=== PATIENT | male | born 1945 | race Caucasian/White ===

== ENCOUNTER 2016-09-09 00:38 | Emergency (ER) | payer OTHER ==
[2016-09-09] MEDS ORDERED: LASIX IV ONE (01:02)
--- NOTE | 2016-09-09 01:07 | PROVIDER DOCUMENTATION ---
HPI-General Adult <Jose Joseph - Last Filed: 09/09/16 02:31> - General Source: patient - History of Present Illness -Gen Adult Nature of Presenting Problems: Pt is a 71 yom who presents to ER with CC of fluid retention in the foreskin of his penis and in his lower extremities bilaterally. Pt has hx of CHF and was discharged 2 days ago from the hospital for edema. Pt reports that tonight, he has noticed an increasing shortness of breath that is worsened when standing/ moving and is relieved with immobilization, N, abdominal pain from the surgery ( pt rates a 4/10), and mild wheezing. Location of Pain/Injury: reports: abdomen Pain Radiation: reports: no radiation Quality of Pain: reports: dull Severity: reports: mild Onset/Duration: reports: this evening Timing: reports: still present Context/Activities at Onset: reports: light activity Modifying Factors: improves with: immobilization, lying down, rest. worse with : exercise, movement Associated Symptoms: reports: nausea. denies: back/neck pain, chest pain, constipation, cough, diarrhea, fever/chills, loss of appetite, muscle aches, vomiting, weakness Similar Symptoms Previously?: Yes Recently seen or treated by another doctor?: Yes <Jatinder Cedillo - Last Filed: 09/09/16 02:47> - General Chief Complaint: Edema Stated Complaint: EDEMA Time Seen by Provider: 09/09/16 00:53 Allergies/Adverse Reactions: Patient Allergies Allergy/AdvReac Type Severity Reaction Status Date / Time Penicillins Allergy Severe edema Verified 09/09/16 00:57 cephalexin monohydrate * Allergy Intermediate ITCHING Verified 09/09/16 00:57 [From Keflex] Home Medications: Home Medication List Medication Instructions Recorded Confirmed Last Taken Type Aspirin [Aspirin EC] 81 mg PO EVERY OTHER DAY 05/14/13 09/09/16 09/08/16 History Gabapentin 300 mg PO BID 05/14/13 09/09/16 09/08/16 History Cyanocobalamin/FA/Pyridoxine 1 each PO DAILY 08/29/16 09/09/16 09/08/16 History [Folgard Tablet] Magnesium 250 mg PO DAILY 08/29/16 09/09/16 09/08/16 History Pantoprazole [Protonix] 40 mg PO DAILY@0700 08/29/16 09/09/16 09/08/16 History Sennosides/Docusate Sodium [Stool 1 - 3 each PO PRN PRN 08/29/16 09/09/16 History Softener Tablet] Hydrocodone/Acetaminophen [[place] 1 each PO Q4H PRN #15 tablet 09/05/16 09/09/16 09/08/16 Rx 10-325 Tablet] Furosemide [Lasix] 40 mg PO DAILY #30 tablet 09/09/16 Unknown Rx Review of Systems - Adult - REVIEW OF SYSTEMS - ADULT Constitutional: denies: chills, fever, fatique, night sweats Eyes: reports: no symptoms reported Ears, Nose, Mouth & Throat: reports: no symptoms reported Cardiovascular: reports: edema. denies: chest pain, heart murmur, irregular heart rate, palpitations, poor circulation, syncope Respiratory: reports: shortness of breath, wheezing. denies: chronic cough, cough, dyspnea on exertion, excessive sputum production, hemoptysis, pleurisy Gastrointestinal: reports: no symptoms reported Genitourinary: reports: no symptoms reported Musculoskeletal: reports: no symptoms reported Integumentary: reports: skin thickening (edema in foreskin and lower extremities ). denies: hives, hair loss, itching, mole changes, nail changes, rash, skin sores/ulcer Neurological: reports: no symptoms reported Psychiatric: reports: no symptoms reported Endocrine: reports: no symptoms reported Hematologic/Lymphatic: reports: no symptoms reported Allergic/Immunologic: reports: no symptoms reported All Other Systems: Reviewed and Negative <Jatinder Cedillo - Last Filed: 09/09/16 02:47> Past History - Adult - PAST MEDICAL HISTORY-ADULT Review of Records: reports: Nursing Assessment Review, Medications Reviewed - PRIOR SURGERIES/PROCEDURES Surgical/Procedure History: reports: recent surgery (prostatectomy) - IMMUNIZATION STATUS Childhood Immunizations: See Nurse Assessment Flu Vaccine: See Nurse Assessment <Jatinder Cedillo - Last Filed: 09/09/16 02:47> Physical Exam-General - PHYSICAL EXAM-ADULT Initial Vital Signs Reviewed: Yes - CONSTITUTIONAL General Appearance: appears well, alert, mild distress. negative: cachetic, obese, lethargic, slow to respond, obtunded, combative - RESPIRATORY Respiratory: chest non-tender, lungs clear, normal breath sounds. negative: respiratory distress, decreased breath sounds, accessory muscle use, wheezing - CARDIOVASCULAR Cardiovascular: normal peripheral pulses, regular rate, rhythm. negative: bradycardia, tachycardia, irregularly irregular - GENITOURINARY Male Genitalia: scrotal swelling. negative: inguinal lymphadenopathy - SKIN Integumentary: normal color, normal turgor, warm/dry - NEUROLOGIC Neurologic: grossly normal, no motor/sensory deficits - PSYCHIATRIC Psych/Mental Status: normal mood/affect, normal thought content, normal thought process, oriented x 3 <Jatinder Cedillo - Last Filed: 09/09/16 02:47> Progress - PLAN OF CARE/RESULTS Progress/Plan/Lab Results: POC: blood/urine/IV lasix Vital Signs - 24 hr 09/09/16 00:45 Temperature 98.0 F Pulse Rate 87 Respiratory 18 Rate Blood Pressure 96/69 O2 Sat by Pulse 96 Oximetry Orders Category Date Time Status CHEST-2 VIEWS [RAD] Stat Exams 09/09/16 01:01 Taken BNP [PRO B-NATRIURETIC PEPTIDE] Stat Lab 09/09/16 01:33 Completed CBC WITH ELECTRONIC DIFF [HEME] Stat Lab 09/09/16 01:33 Completed CMP [COMPREHENSIVE METABOLIC PANEL] [CHEM] Stat Lab 09/09/16 01:33 Completed Ddimer [D-DIMER] [CHEM] Stat Lab 09/09/16 01:33 Completed TROPONIN T Stat Lab 09/09/16 01:33 Completed Furosemide [Lasix] Med 09/09/16 01:02 Discontinued 40 mg IV NOW ONE EKG [EKG] Stat Ther 09/09/16 01:02 Ordered Laboratory Tests 09/09/16 09/09/16 09/09/16 01:33 01:33 01:33 WBC 4.71 L RBC 3.38 L Hgb 11.0 L Hct 33.1 L MCV 97.9 MCH 32.5 H MCHC 33.2 RDW Std Deviation 13.3 Plt Count 220 D MPV 10.5 H Immature Gran % (Auto) 0.0 Neut % (Auto) 61.2 Lymph % (Auto) 17.6 L [place] % (Auto) 16.8 H Eos % (Auto) 4.0 Baso % (Auto) 0.4 Immature Gran # (Auto) 0.00 Neut # (Auto) 2.88 Lymph # (Auto) 0.83 L [place] # (Auto) 0.79 H Eos # (Auto) 0.19 Baso # (Auto) 0.02 D-Dimer Sodium 138 Potassium 4.0 D Chloride 95 L Carbon Dioxide 31 Anion Gap 12 BUN 19 Creatinine 0.9 Estimated GFR/1.73 m2 > 60 BUN/Creatinine Ratio 21 Glucose 96 Calculated Osmolality 278 Calcium 9.0 Total Bilirubin 1.11 H AST 32 ALT 14 Alkaline Phosphatase 61 Troponin T Nfd-H-Opqwgluhcoz Pept 829 H Total Protein 5.8 L Albumin 3.4 L Globulin 2.4 Albumin/Globulin Ratio 1.4 09/09/16 09/09/16 01:33 01:33 WBC RBC Hgb Hct MCV MCH MCHC RDW Std Deviation Plt Count MPV Immature Gran % (Auto) Neut % (Auto) Lymph % (Auto) [place] % (Auto) Eos % (Auto) Baso % (Auto) Immature Gran # (Auto) Neut # (Auto) Lymph # (Auto) [place] # (Auto) Eos # (Auto) Baso # (Auto) D-Dimer 1.15 H Sodium Potassium Chloride Carbon Dioxide Anion Gap BUN Creatinine Estimated GFR/1.73 m2 BUN/Creatinine Ratio Glucose Calculated Osmolality Calcium Total Bilirubin AST ALT Alkaline Phosphatase Troponin T < 0.010 Zcw-K-Dtgdeedepoo Pept Total Protein Albumin Globulin Albumin/Globulin Ratio - EKG 1 Time of EKG reading by physician:: 02:10 EKG Read and Signed by:: Jose Joseph EKG Interpretation (*Must complete 3 of following elements*): Abnormal (L anterior fascicular block) Rate: 90 Rhythm: Normal sinus rhythm - XRAY 1 XRAY: Bilateral XRAY Study: Chest Impression: See EMR Report XRAY Interpretation: Emphysema, otherwise normal <Jatinder Cedillo - Last Filed: 09/09/16 02:47> Departure - Departure Time of Disposition Order: 02:32 Certified Medical Emergency: Emergent <Jose Joseph - Last Filed: 09/09/16 02:31> - Departure Time of Disposition Order: 02:34 Certified Medical Emergency: Emergent <Jatinder Cedillo - Last Filed: 09/09/16 02:47> - Departure DIAGNOSIS: Fluid overload Qualifiers: Hypervolemia type: other Qualified Code(s): E87.79 - Other fluid overload Disposition: HOME 01 Condition: Good Additional Instructions: take lasix for 5 days ED Follow Up Instructions: You have been treated by a care provider in the Emergency Department. These instructions are being provided to you so you can have an understanding of how to care for yourself upon discharge. Upon discharge from the Emergency Department, you are responsible for making arrangements for follow-up care by a physician of your choice. Take all prescribed medications as directed. Return to the Emergency Department immediately for any new or worsening symptoms. You may call the Physician Referral phone number at [phone] to obtain a list of Physicians who are taking new patients. Prescriptions: Furosemide [Lasix] 40 mg PO DAILY #30 tablet Instructions: Edema Attestation - Scribe Verification/Attestation Scribe:: Jatinder Cedillo Acting as Scribe for:: Jose Joseph Scribe documention review:: This chart was documented by a scribe and accurately reflects the service the provider performed and the decisions made by the provider. <Jatinder Cedillo - Last Filed: 09/09/16 02:47> Physician Attestation
[2016-09-09 01:42] LABS: MANUAL DIFF NEEDED? NO
[2016-09-09 01:44] LABS: BASO% 0.4 % (0.0-0.8); EOS# 0.19 X1000 (0.0-0.7); HEMATOCRIT 33.1 % (42.0-52.0); LYMPH# 0.83 X1000 (1.2-3.4); LYMPH% 17.6 % (20.5-51.1); MCH 32.5 PG (27-31); MCHC 33.2 g/dL (33-37); MCV 97.9 FL (81-99); MONO# 0.79 X1000 (0.11-0.59); MONO% 16.8 % (1.7-9.3); MPV 10.5 FL (7.4-10.4); NEUT% 61.2 % (42.2-75.2); PLT 220 X1000 (130-400); RBC 3.38 XMIL (4.7-6.1)
[2016-09-09 02:04] LABS: AGAP 12; ALBUMIN 3.4 g/dL (3.5-5.0); ALKALINE PHOSPHATASE 61 U/L (32-122); BUN 19 mg/dL (8-22); CHLORIDE 95 mmol/L (98-107); COSMO 278; GOT 32 U/L (10-34); GPT 14 U/L (10-44); SODIUM 138 mmol/L (136-145); TCO2 31 mmol/L (25-35); TOTAL BILIRUBIN 1.11 mg/dL (0.20-1.00); TOTAL PROTEIN 5.8 g/dL (6.3-8.3)
[2016-09-09 03:01] VITALS: BP 107/70
--- NOTE | 2016-09-09 09:43 | Diag Imaging Result Document ---
PROCEDURE NAME: CHEST-2 VIEWS - 09/09/2016 TWO VIEWS OF THE CHEST: FINDINGS: There is severe bullous emphysema in the upper lung zones. There are calcified nodes on the left. There is no evidence of acute pulmonary disease. There is an old rib fracture in the right lateral 5th rib. IMPRESSION: COPD. No evidence of acute disease.
--- NOTE | 2016-09-11 07:59 | EKG Report ---
Test Performed on : 09/09/2016 02:02:12 AM Test Reason : sob Blood Pressure : / mmHG Vent. Rate : 090 BPM Atrial Rate : 090 BPM P-R Int : 158 ms QRS Dur : 086 ms QT Int : 370 ms P-R-T Axes : 072 -79 086 degrees QTc Int : 452 ms Normal sinus rhythm. Left anterior fascicular block Abnormal ECG When compared with ECG of 05-SEP-2016 22:12, (Unconfirmed) No significant change was found Unconfirmed Result
== END 2016-09-09 03:01 | disposition home or self-care (01) ==
LOC: ED 00:38
DX: E87.70 Fluid overload, unspecified (principal); R60.9 Edema, unspecified; N50.89 Other specified disorders of the male genital organs; R94.31 Abnormal electrocardiogram [ECG] [EKG]; R06.02 Shortness of breath; R06.2 Wheezing; J44.9 Chronic obstructive pulmonary disease, unspecified; Z79.899 Other long term (current) drug therapy; Z79.82 Long term (current) use of aspirin
CPT/HCPCS: 71020; 80053; 83880; 84484; 85025; 85379; 93005; J1940

== ENCOUNTER 2017-02-23 16:40 | Inpatient (IN) ==
[2017-02-23] MEDS ORDERED: MORPHINE IV ONE ×3 (16:45→19:55)
--- NOTE | 2017-02-23 16:55 | Diag Imaging Result Doc PS360 ---
EXAM: CHEST-PORTABLE HISTORY: FALL TECHNIQUE: AP portable sitting upright at 1650 COMMENT: There is a large left pneumothorax. The apex of the left lung appears to be fixed to the pleura. There is COPD. Otherwise, compared to the previous study of 09/09/2016 there has been no significant change. There is soft tissue emphysema present in the axillary and upper left chest wall regions. There are apparent fractures of the lateral fourth and possibly of the fifth ribs on the left. The heart size and primary vascularity are within normal limits. IMPRESSION: Left pneumothorax and a probable rib fractures. The findings were discussed with Aj Brown MD at 02/23/2017 4:53 PM. Electronically signed by Mark Nicholas 02/23/2017 4:53 PM
[2017-02-23] MEDS ORDERED: VERSED IV ONE (17:01)
[2017-02-23] MEDS ORDERED: VERSED ONE (17:02)
[2017-02-23] MEDS ORDERED: NS 1,000 ML IV ONE (17:10)
--- NOTE | 2017-02-23 17:41 | Diag Imaging Result Doc PS360 ---
EXAM: CHEST-PORTABLE HISTORY: TUBE PLACEMENT TECHNIQUE: AP portable at 1735 COMMENT: There is a left chest tube. The pneumothorax has been evacuated. There is still soft tissue emphysema laterally. IMPRESSION: Resolution of left pneumothorax. Electronically signed by Mark Nicholas 02/23/2017 5:39 PM
[2017-02-23 18:03] LABS: MANUAL DIFF NEEDED? NO
[2017-02-23 18:09] LABS: BASO% 0.2 % (0.0-0.8); EOS% 1.6 % (0.0-10.0); HEMATOCRIT 44.4 % (42.0-52.0); HEMOGLOBIN 14.7 g/dL (14.0-18.0); LYMPH# 1.65 X1000 (1.2-3.4); LYMPH% 26.7 % (20.5-51.1); MCH 34.3 PG (27-31); MCHC 33.1 g/dL (33-37); MCV 103.5 FL (81-99); MONO# 0.76 X1000 (0.11-0.59); MONO% 12.3 % (1.7-9.3); MPV 11.3 FL (7.4-10.4); NEUT% 59.2 % (42.2-75.2); PLT 181 X1000 (130-400); RBC 4.29 XMIL (4.7-6.1)
[2017-02-23] MEDS ORDERED: MORPHINE ONE (18:19)
[2017-02-23 18:25] LABS: AGAP 14; ALKALINE PHOSPHATASE 104 U/L (32-122); BUN 23 mg/dL (8-22); CALCIUM 9.2 mg/dL (8.8-10.2); CHLORIDE 98 mmol/L (98-107); COSMO 281; GOT 41 U/L (10-34); GPT 21 U/L (10-44); POTASSIUM 4.1 mmol/L (3.5-5.1); SODIUM 138 mmol/L (136-145); TCO2 26 mmol/L (25-35); TOTAL BILIRUBIN 0.47 mg/dL (0.20-1.00); TOTAL PROTEIN 7.8 g/dL (6.3-8.3)
--- NOTE | 2017-02-23 19:15 | Diag Imaging Result Doc PS360 ---
EXAM: THORAX/ABDOMEN/PELVIS HISTORY: FELL THRU ROOF TECHNIQUE: CT of the chest with intravenous contrast; CT of the abdomen and pelvis with intravenous contrast, dose reduction (clarity.) COMMENT: There is severe COPD. There is a chest tube on the left. There is considerable soft tissue emphysema outside of the ribs on the left and there is a tiny residual pneumothorax. This is most apparent inferiorly and anteriorly over the hemidiaphragm. Some atelectasis is present in both bases particularly in the lingula anteriorly and the lower lobes medially bilaterally. The esophagus is markedly distended with retained secretions and probable food particles. This is presumably due to the gastric pull-through which was also present time the previous study of 02/02/2017. There is a fracture of the left lateral fourth rib and possibly a nondisplaced fracture of the lateral fifth rib. There is an old fracture or postsurgical change in the right fifth rib. ABDOMEN: There is a fairly large amount of stool throughout the colon. There is an accessory right renal artery. The renal and mesenteric arteries are patent and there is no evidence of abdominal aortic aneurysm. There are cysts in the liver as there were on the previous study of 04/15/2015. The kidneys adrenal glands spleen and pancreas are stable in appearance. There is a fat-containing ventral hernia on the right side of the umbilicus. Pelvis: There is diverticulosis in the sigmoid colon. No evidence of acute diverticulitis is present. There is no evidence of appendicitis. There is stool in the rectum. Some scoliosis of the lumbar spine with convexity to the left is present. There is no evidence of acute bony disease. IMPRESSION: Postsurgical changes. Residual tiny left pneumothorax with rib fracture on the left as described. Constipation. Diverticulosis coli. Electronically signed by Mark Nicholas 02/23/2017 7:13 PM
[2017-02-23] MEDS ORDERED: DILAUDID IV PRN (21:51)
[2017-02-23] MEDS ORDERED: DILAUDID IV ONE (21:51)
[2017-02-23] MEDS ORDERED: NORCO-7.5 PO PRN (21:51)
[2017-02-23] MEDS ORDERED: LOVENOX SUBQ ONE (21:51)
[2017-02-23] MEDS: TORADOL IV SCH (22:15)
--- NOTE | 2017-02-23 22:31 | HISTORY AND PHYSICAL ---
CHIEF COMPLAINT: Chest pain. HISTORY OF PRESENT ILLNESS: This is a 71-year-old male who fell through his attic floor today and landed on his left side. Since then he has been complaining of left-sided chest wall pain and shortness of breath that is worse with deep breaths, coughing and movement. It is helped a little with morphine in the ER. No nausea, vomiting, headache, neck pain, abdominal pain, other extremity pain, or other systemic complaints. Imaging in the ER revealed a rib fracture on the left and pneumothorax. A chest tube was placed in the emergency room. A subsequent CT scan revealed residual small left pneumothorax with fractures of the left 4th rib and possibly left 5th rib. Subsequent chest x-ray then revealed resolution of the pneumothorax. PAST MEDICAL HISTORY: 1. History of esophageal cancer status post esophagectomy with gastric pull-through in 2009. 2. History of bladder cancer status post robotic prostatectomy [place] [address] Gruber. 3. Gastroesophageal reflux disease. 4. Chronic pain of the chest wall and back after esophagectomy. ALLERGIES: Penicillin and Keflex. HOME MEDICATIONS: Aspirin, Neurontin, magnesium, Protonix, [place]. FAMILY HISTORY: Mother had diabetes mellitus. SOCIAL HISTORY: He is retired. He is a former smoker but currently denies tobacco, alcohol or illicit drug use. He is . PAST SURGICAL HISTORY: 1. Manuel Graeme esophagectomy. 2. Internal hernia repair. 3. Robotic prostatectomy. PHYSICAL EXAMINATION: VITAL SIGNS: Temperature 97.5 degrees, pulse 83, respirations 15, blood pressure 116/70, O2 saturation 100%. GENERAL: Elderly male, in no acute distress who looks stated age. HEENT: Normocephalic, atraumatic. Extraocular muscles intact. Pupils equal, round, reactive to light. Sclerae anicteric. Moist mucous membranes. Hearing grossly normal. NECK: Supple. No thyromegaly. CARDIOVASCULAR: Regular rate and rhythm. RESPIRATORY: Bilateral equal breath sounds. No work of breathing. Chest tube is in place on the left without an air leak. He is tender over the left anterior and lateral chest wall. GASTROINTESTINAL: Soft, nontender, nondistended. A well-healed laparotomy incision. No hernia. No mass appreciated. EXTREMITIES: No clubbing, cyanosis, edema. SKIN: Warm and dry. No rash. MUSCULOSKELETAL: Moves all extremities equally and well. LABORATORY: White cell count 6, hemoglobin 14, platelet count 181,000. Electrolyte panel was reviewed and unremarkable. IMAGING: As described above in HPI. ASSESSMENT/PLAN: A 71-year-old male with a left-sided rib fracture and pneumothorax after a fall. The pneumothorax has improved or resolved after chest tube drainage. He will be admitted for continued observation and insurance of resolution of the pneumothorax as well as pain control and stabilization of his breathing. I will follow his chest examination and x-rays to determine when to remove the chest tube. cc: Nilson Hurt MD
[2017-02-24] MEDS: TORADOL IV SCH ×4 (05:12→21:18)
[2017-02-24] MEDS: NORCO-10 PO PRN ×3 (05:17→17:54)
[2017-02-24] MEDS: PRILOSEC PO SCH (06:44)
[2017-02-24 07:03] LABS: MANUAL DIFF NEEDED? NO
[2017-02-24 07:14] LABS: BASO% 0.1 % (0.0-0.8); HEMATOCRIT 38.9 % (42.0-52.0); HEMOGLOBIN 12.9 g/dL (14.0-18.0); IMM GRAN# 0.02 X1000 (0.0-0.04); IMM GRAN% 0.2 % (0.0-0.5); LYMPH# 0.56 X1000 (1.2-3.4); LYMPH% 6.7 % (20.5-51.1); MCH 33.9 PG (27-31); MCHC 33.2 g/dL (33-37); MCV 102.1 FL (81-99); MONO# 0.75 X1000 (0.11-0.59); MPV 11.1 FL (7.4-10.4); PLT 147 X1000 (130-400); RBC 3.81 XMIL (4.7-6.1)
--- NOTE | 2017-02-24 07:14 | Diag Imaging Result Doc PS360 ---
EXAM: CHEST-PORTABLE HISTORY: pneumothorax TECHNIQUE: AP portable at 0500 COMMENT: There is a left chest tube. There continues to be soft tissue emphysema over the left upper chest laterally. The inspiration is better than on 02/23/2017. There is no evidence of residual pneumothorax. Otherwise the appearance of the chest has not changed significantly. IMPRESSION: Stable chest. Electronically signed by Mark Nicholas 02/24/2017 7:12 AM
[2017-02-24 08:06] LABS: AGAP 11; BUN 26 mg/dL (8-22); CALCIUM 8.8 mg/dL (8.8-10.2); CHLORIDE 98 mmol/L (98-107); COSMO 275; POTASSIUM 4.1 mmol/L (3.5-5.1); SODIUM 135 mmol/L (136-145); TCO2 26 mmol/L (25-35)
[2017-02-24] MEDS: NEURONTIN PO SCH ×2 (08:29→21:18)
[2017-02-24] MEDS: MAG-OX PO SCH (08:29)
--- NOTE | 2017-02-24 10:18 | PROGRESS NOTE ---
DATE: 02/24/2017 SUBJECTIVE: The patient says his chest pain has improved some. He is not short of breath this morning. OBJECTIVE: He is afebrile and vital signs are stable. General: He is alert and oriented x3. No acute distress. CV: Regular rate and rhythm. Respiratory: Bilateral equal breath sounds. No work of breathing. There is no air leak in the chest tube. IMAGING: Chest x-ray shows resolution of the pneumothorax. LABORATORY: White blood cell count 8, hemoglobin 12.9. BUN 26, creatinine 0.9. ASSESSMENT AND PLAN: A 71-year-old male status post fall with left-sided rib fractures and pneumothorax. The pneumothorax has resolved after chest tube drainage. We will continue the chest tube 1 more day and change it to water seal. If he is stable tomorrow, I will plan to remove the chest tube and potentially discharge tomorrow if his pain is controlled and he is breathing adequately. cc: Nilson Hurt MD
--- NOTE | 2017-02-24 11:29 | Diag Imaging Result Doc PS360 ---
EXAM: CHEST-PORTABLE HISTORY: recent pneumothorax TECHNIQUE: AP portable upright chest COMMENT: The left chest tube is again noted. Compared to the previous study at 0500 there is been no appreciable change. IMPRESSION: Stable chest. Electronically signed by Mark Nicholas 02/24/2017 11:26 AM
[2017-02-25] MEDS: TORADOL IV SCH ×3 (04:07→16:55)
[2017-02-25] MEDS ORDERED: ZOFRAN IV ONE (05:48)
[2017-02-25] MEDS: PRILOSEC PO SCH (05:59)
[2017-02-25] MEDS: ASPIRIN EC PO SCH (08:44)
[2017-02-25] MEDS: MAG-OX PO SCH (08:44)
[2017-02-25] MEDS: NEURONTIN PO SCH ×2 (08:44→20:45)
[2017-02-25] MEDS: NORCO-10 PO PRN ×3 (08:49→18:30)
--- NOTE | 2017-02-25 12:18 | PROGRESS NOTE ---
DATE: 02/25/2017 SUBJECTIVE: The patient has some intermittent shortness of breath. He is not hurting as bad in his chest. OBJECTIVE: Vital signs: He is afebrile. Vital signs are stable. However, his O2 saturation on room air is 89%. We placed him back on 2 L. Chest tube output is negligible. There is no air leak in the chest tube. General: Alert and oriented x3. No acute distress. CV: Regular rate and rhythm. Respiratory: He has bilateral breath sounds. They appear to be equal. IMAGING: None today. Yesterday showed resolution of the pneumothorax. ASSESSMENT AND PLAN: This is a 71-year-old male with pneumothorax after a fall and left-sided rib fractures. A chest tube was placed. There is apparent resolution of the pneumothorax. Will remove the chest tube today and follow up imaging later this afternoon. Will try to wean him off the oxygen today in anticipation of discharge tomorrow. cc: Nilson Hurt MD
--- NOTE | 2017-02-25 15:55 | Diag Imaging Result Doc PS360 ---
EXAM: CHEST-2 VIEWS HISTORY: recent pneumothorax TECHNIQUE: PA and lateral chest COMMENT: The left chest tube has been removed. There is still soft tissue emphysema but no detectable pneumothorax is demonstrated. There is some atelectasis present in the left base. The heart size and pulmonary vascularity are within normal limits. There may be a small left pleural effusion. IMPRESSION: No evidence of residual or recurrent pneumothorax. Electronically signed by Mark Nicholas 02/25/2017 3:52 PM
[2017-02-25] MEDS ORDERED: ZOFRAN IV PRN (20:25)
[2017-02-26] MEDS: TORADOL IV SCH ×5 (01:42→23:02)
--- NOTE | 2017-02-26 05:53 | EKG Report ---
Test Performed on : 02/23/2017 4:43:03 PM Test Reason : FELL THRU ROOF Blood Pressure : / mmHG Vent. Rate : 097 BPM Atrial Rate : 097 BPM P-R Int : 182 ms QRS Dur : 080 ms QT Int : 330 ms P-R-T Axes : 073 242 081 degrees QTc Int : 419 ms Normal sinus rhythm. Lateral infarct , age undetermined Abnormal ECG When compared with ECG of 09-SEP-2016 02:02, Left anterior fascicular block is no longer present Lateral infarct is now present Unconfirmed Result
[2017-02-26] MEDS: PRILOSEC PO SCH (06:01)
[2017-02-26] MEDS: NORCO-10 PO PRN ×3 (06:51→19:29)
[2017-02-26] MEDS: NEURONTIN PO SCH ×2 (09:42→20:48)
[2017-02-26] MEDS: MAG-OX PO SCH (09:42)
--- NOTE | 2017-02-26 10:00 | PROGRESS NOTE ---
DATE: 02/26/2017 SUBJECTIVE: The patient says he has had no problems overnight. No chest pain or shortness of breath. He sat up in a chair for a little while. OBJECTIVE: Vital Signs: He is afebrile. Vital signs are stable except for a drop in his saturations 86% on room air on 2 L of nasal cannula. His oxygen saturation is 94%. General: He is awake and alert. No acute distress. CV: Regular rate and rhythm. Respiratory: Bilateral equal breath sounds. No work of breathing. ASSESSMENT AND PLAN: A 71-year-old male, status post left pneumothorax with associated left rib fracture after a fall. The pneumothorax has resolved. His respiratory insufficiency is mild, but persists. Hopefully, we can wean him off oxygen today and then discharge him. cc: Nilson Hurt MD
[2017-02-26] MEDS ORDERED: VENTOLIN HFA INH PRN (10:03)
--- NOTE | 2017-02-26 16:52 | CONSULTATION ---
DATE OF CONSULTATION: 02/26/2017 REFERRING PHYSICIAN: Dr. Hurt CHIEF COMPLAINT: Fall. HISTORY OF PRESENT ILLNESS: This is a 71-year-old male, with past medical history of COPD, esophageal cancer, bladder cancer and GERD, who presented to the emergency room after a fall. He states he was working in the attic, fell through the ceiling, and landed on his left side on concrete. He did have a left pneumothorax and rib fractures. He did have a chest tube placed with resolution of the pneumothorax. He is currently requiring oxygen to maintain appropriate oxygen saturations. He denies any pain or discomfort at this time. He denies any fever, chills, cough, abdominal pain, nausea, vomiting, or diarrhea. REVIEW OF SYSTEMS: A 10-point review of systems was conducted. Pertinent is noted in the HPI, otherwise noncontributory. PAST MEDICAL HISTORY: As mentioned in HPI, otherwise noncontributory. PAST SURGICAL HISTORY: Hernia repair, esophagus surgery and prostatectomy. ALLERGIES: Penicillin and Keflex. FAMILY HISTORY: Noncontributory. SOCIAL HISTORY: The patient lives at home with his . Denies use of tobacco , alcohol, or illicit drugs. HOME MEDICATIONS: Aspirin, Neurontin, magnesium, Protonix, [place]. PHYSICAL EXAMINATION: Vital Signs: Blood pressure 105/64, heart rate 89, respiratory rate 18, temperature 98.4, oxygen saturation 95% on 2 L. General: Awake, alert, sitting up in bed. No acute distress noted. HEENT: Normocephalic and atraumatic. PERRL. Cardiovascular: Regular rate and rhythm. S1 and S2 present. Chest: Reduced entry. Abdomen: Soft, bowel sounds present in all quadrants. Extremities: No edema noted. Skin: Warm, dry and intact. Neurologic: Alert and oriented x3. No focal deficits. LABORATORIES AND INVESTIGATIONS: Chest x-ray, performed 02/25/2017, shows resolution of pneumothorax. ASSESSMENT AND PLAN: This is a 71-year-old male, with past medical history as mentioned in HPI, who was admitted to the hospital after suffering a fall and had a pneumothorax with rib fractures. COPD and emphysema on CT chest. Started bronchodilators. He did have a chest tube placed, but since has been removed. Imaging shows resolution of pneumothorax. The patient is requiring some supplemental oxygen to maintain appropriate oxygen saturations, and which he may require at home. Continue home medications. Further recommendations pending diagnostic studies. Thank for the courtesy of this consult. Dictated by TOBI Dee for Sherrill Barker MD cc: TOBI Dee MD Jason R. Seale, MD [facility]
[2017-02-26] MEDS: ADVAIR 250/50 DISKUS INH SCH (19:30)
[2017-02-27 03:16] LABS: ALLEN TEST YES; BE 4.4 mmoll (-3.0-3.0); BLOOD TYPE ARTERIAL; DRAW SITE R BRACHIAL; MODALITY CANNULA; O2(CT) 15.8 mL/dL (15.0-23.0); PCO2(98.6) 50 mmHg (35-45); PO2(98.6) 69 mmHg (60-100); SAMPLE BLOOD; SAO2 96.1 % (95.0-100.0); pH(98.6) 7.39 (7.35-7.45)
[2017-02-27] MEDS: PRILOSEC PO SCH ×2 (05:41→06:18)
[2017-02-27] MEDS: NORCO-10 PO PRN ×2 (05:43→14:04)
[2017-02-27 06:44] LABS: MANUAL DIFF NEEDED? NO
[2017-02-27 06:56] LABS: BASO% 0.2 % (0.0-0.8); EOS# 0.24 X1000 (0.0-0.7); EOS% 4.5 % (0.0-10.0); HEMATOCRIT 37.3 % (42.0-52.0); HEMOGLOBIN 12.2 g/dL (14.0-18.0); LYMPH# 0.53 X1000 (1.2-3.4); LYMPH% 9.9 % (20.5-51.1); MCH 33.5 PG (27-31); MCHC 32.7 g/dL (33-37); MCV 102.5 FL (81-99); MONO# 0.73 X1000 (0.11-0.59); MONO% 13.7 % (1.7-9.3); MPV 11.2 FL (7.4-10.4); NEUT% 71.7 % (42.2-75.2); PLT 147 X1000 (130-400); RBC 3.64 XMIL (4.7-6.1)
[2017-02-27 07:08] LABS: AGAP 7; BUN 35 mg/dL (8-22); CALCIUM 8.8 mg/dL (8.8-10.2); CHLORIDE 98 mmol/L (98-107); COSMO 280; POTASSIUM 4.8 mmol/L (3.5-5.1); SODIUM 136 mmol/L (136-145); TCO2 31 mmol/L (25-35)
--- NOTE | 2017-02-27 07:34 | Diag Imaging Result Doc PS360 ---
CHEST-1 VIEW - 02/27/2017 INDICATION: SOB TECHNIQUE: COMPARISON: 02/25/2017 FINDINGS: Stable COPD changes. Stable minimal scarring in the left lung base. There is improvement in the subcutaneous emphysema along the left chest wall. No pneumothorax or large effusion. IMPRESSION: Improving subcutaneous emphysema at the left chest wall. No new abnormality. Electronically signed by Kennedy Batista 02/27/2017 7:32 AM
[2017-02-27] MEDS: ADVAIR 250/50 DISKUS INH SCH (07:37)
[2017-02-27] MEDS: ASPIRIN EC PO SCH (08:29)
[2017-02-27] MEDS: MAG-OX PO SCH (08:29)
[2017-02-27] MEDS: NEURONTIN PO SCH (08:29)
[2017-02-27 15:52] VITALS: BP 101/71
--- NOTE | 2017-02-27 16:36 | PROGRESS NOTE ---
DATE: 02/27/2017 SUBJECTIVE: The patient reports some off and on left-sided chest pain. He occasionally gets short of breath. His oxygen saturation level as reported per the nurse initially was 91-94% on room air. However, he then desaturated to 85% on room air. OBJECTIVE: Vital Signs: He is afebrile. His vital signs were stable with oxygen saturations as noted above, being somewhat labile. General: He is awake, alert and oriented x4. No acute distress. Respiratory: Bilateral equal breath sounds. No increased work of breathing. Gastrointestinal: Soft, nontender, nondistended. CV: Regular rate and rhythm. LABORATORY: White blood cell count 5.3, hemoglobin 12.2. His ABG this morning showed pH 7.4, pCO2 of 50, PaO2 of 69, bicarb 28. BUN 35, creatinine 1.0. IMAGING: Chest x-ray today showed improving subcutaneous emphysema in the chest wall and no pneumothorax or large effusion. There are stable COPD changes. ASSESSMENT AND PLAN: A 71-year-old male with left-sided rib fractures and pneumothorax after a fall. The pneumothorax has resolved. He continues to have some chest pain and hypoxia. He has COPD. Dr. Barker is assisting with treating his respiratory insufficiency. We will plan to discharge him per Dr. Barker's recommendations in the near future, either with or without oxygen. cc: Nilson Hurt MD
--- NOTE | 2017-02-27 19:18 | DISCHARGE SUMMARY ---
ADMISSION DATE: 02/23/2017 DISCHARGE DATE: 02/27/2017 ADMITTING DIAGNOSES: 1. Left fourth rib fracture. 2. Left pneumothorax. 3. History of chronic chest pain. 4. History of chronic back pain. 5. Gastroesophageal reflux disease. 6. History of bladder and esophageal cancer. DISCHARGE DIAGNOSES: 1. Left fourth rib fracture. 2. Left pneumothorax. 3. History of chronic chest pain. 4. History of chronic back pain. 5. Gastroesophageal reflux disease. 6. History of bladder and esophageal cancer. 7. Respiratory insufficiency. 8. Hypoxia. PROCEDURES: Placement of left-sided chest tube in the emergency department. CONSULTS: Dr. Barker, with pulmonology. HOSPITAL COURSE: This is a 71-year-old man who fell through his attic ceiling sustaining left- sided rib fracture and pneumothorax. He was admitted for pain control, oxygen supplementation and observation. He had a chest tube placed in emergency department which resolved his pneumothorax. We removed the chest tube on 02/25/2017. He had no recurrent pneumothorax. He did have some pain and shortness of breath that gradually resolved during his admission. Dr. Barker saw the patient and started AA nebulizers. By 02/27/2017 he was maintaining his oxygen level without supplemental oxygen in the low 90s. His pain had improved and he was discharged home. INSTRUCTIONS: Follow up with Dr. Barker in 1 week and with primary care physician. Followup with Dr. Hurt as needed. He may remove the dressing on his left chest next week. He may shower. He may eat a regular diet as tolerated. DISCHARGE MEDICATIONS: He will continue aspirin, gabapentin, magnesium, Protonix and [place] at home. He has a new prescription for albuterol and Advair nebulizers. cc: MD Sherrill Travis MD
--- NOTE | 2017-02-28 03:44 | PROGRESS NOTE ---
DATE: 02/27/2017 ADDENDUM: I spoke with the nurse again around 4:30 this afternoon and in fact his oxygen level is good in the mid 90s on room air. He briefly decreased his oxygen level into the mid 80s although he seemed to be somewhat anxious. As his nerves calmed down his oxygen level improved. I think he can be safely discharged with encouragement to slow his breathing rate down and continue practicing on the incentive spirometer. He knows to call our office or Dr. Barker's if any persistent shortness of breath and chest pain. cc: Nilson Hurt MD
--- NOTE | 2017-03-02 07:13 | ED EKG INTERP ---
This chart was entered by Zahida Soto Scribe, acting as scribe for Aj Brown MD. EKG Interpretation - EKG Time of EKG reading by physician:: 16:43 EKG Read and Signed by:: Aj Brown EKG Interpretation (*Must complete 3 of following elements*): Abnormal Rate: 97 Rhythm: NSR [place]: normal QRS: other (LATERAL INFARCT) [place] Interval: normal ST Wave: normal Attestation - Physician/ CLAUS Attestation Patient care was provided by Advanced Practice Provider:: No The physician spent face to face time with patient:: Yes (APPs do not interpret EKGs) Advanced Practice Provider documentation review:: Supervising physician onsite and consulted in the evaluation and care of this patient. The physician did have a face to face encounter with the patient. This chart was documented by the indicated scribe, (Zahida Soto Scribe) and accurately reflects the services I performed and decisions made by Kevin swanson Alex T., MD, as attested by the provider's signature.
--- NOTE | 2017-03-02 07:16 | PROVIDER DOCUMENTATION ---
This chart was entered by Zahida Soto Scribe, acting as scribe for Aj Brown MD. [id number] <Igor Wallace. - Last Filed: 02/23/17 20:22> - General Source: patient, EMS Unable to obtain history due to:: urgency (Pt is sob in resp distress) - History of Present Illness -Trauma Location of Pain/Injury: reports: chest (chest wall- left), pelvis (L hip pain) Head Injury Location: reports: other (denies) Pain Radiation: reports: no radiation Quality of Pain: reports: aching Severity: reports: mild Onset/Duration: reports: just prior to arrival Timing: reports: still present Method of Injury: reports: fall (10 ft) Loss of Consciousness: no loss of consciousness Duration of LOC: 0 Remembers:: reports: injury, coming to hospital Modifying Factors: improves with: nothing Injury Associated Symptoms: reports: chest pain (L sided chest wall pain), shortness of breath, other (L hip pain). denies: back/neck pain, dizziness, headaches, nausea, snap/crack/pop sensation, pain with inspiration, vomiting, weakness, trouble walking Similar Symptoms Previously?: No Recently seen or treated by another doctor?: No <Aj Brown - Last Filed: 03/02/17 07:16> - General Chief Complaint: Fall Stated Complaint: FALL, 10FT., RESPIRATORY DISTRESS Time Seen by Provider: 02/23/17 16:44 Allergies/Adverse Reactions: Patient Allergies Allergy/AdvReac Type Severity Reaction Status Date / Time Penicillins Allergy Severe edema Verified 02/23/17 17:01 cephalexin monohydrate * Allergy Intermediate ITCHING Verified 02/23/17 17:01 [From Keflex] Home Medications: Home Medication List Medication Instructions Recorded Confirmed Last Taken Type Aspirin [Aspirin EC] 81 mg PO EVERY OTHER DAY 05/14/13 02/23/17 02/23/17 07:00 History Gabapentin 300 mg PO BID 05/14/13 02/23/17 02/23/17 07:00 History Magnesium 250 mg PO DAILY 08/29/16 02/23/17 02/23/17 12:00 History Pantoprazole [Protonix] 40 mg PO DAILY@0700 08/29/16 02/23/17 02/23/17 07:00 History Albuterol [Albuterol Neb] 2.5 mg INH Q4H PRN PRN #30 neb 02/27/17 Unknown Rx Fluticasone/Salmet 250/50 INH 1 puff INH RTBID #60 inhaler 02/27/17 Unknown Rx [Advair 250/50 Diskus] Hydrocodone/Acetaminophen [Lorcet 1 each PO Q4H PRN #30 tablet 02/27/17 Unknown Rx Plus 7.5-325 mg Tablet] - History of Present Illness -Trauma Nature of Presenting Problem: 71 y/o M presents to ED per EMS. Pt fell thru ceiling approx 10 ft. Pt states he fell on his left side and having left sided chest wall pain and L hip pain. Pt denies any LOC. Pt states he did not hit head and does not have headache. Pt is alert and oriented. Pt rates his pain a 8/10. (Zahida Soto) 71 y/o M presents to ED per EMS. Pt fell thru ceiling approx 10 ft. Pt states he fell on his left side and having left sided chest wall pain and L hip pain. Pt denies any LOC. Pt states he did not hit head and does not have headache. Pt is alert and oriented. Pt rates his pain a 8/10. (Aj Brwon) Review of Systems - Adult - REVIEW OF SYSTEMS - ADULT ROS:: limited per condition (pt is SOB) Constitutional: denies: chills, fever Cardiovascular: reports: chest pain (chest wall pain to L side). denies: palpitations Respiratory: reports: shortness of breath. denies: cough Musculoskeletal: reports: other (L hip tenderness). denies: back pain <Aj Brown - Last Filed: 03/02/17 07:16> Past History - Adult - PAST MEDICAL HISTORY-ADULT Review of Records: reports: Old Records Reviewed, Nursing Assessment Review Respiratory: reports: COPD Endocrine/Immune: reports: cancer (prostate and esophgual ca) - PRIOR SURGERIES/PROCEDURES Surgical/Procedure History: reports: recent surgery (prostatectomy) - IMMUNIZATION STATUS Childhood Immunizations: See Nurse Assessment Flu Vaccine: See Nurse Assessment - SOCIAL HISTORY Smoking: denies, non-smoker Substance Use: none/never, denies <Aj Brown - Last Filed: 03/02/17 07:16> Physical Exam-Injury Related - Physical Exam-Injury Related Initial Vital Signs Reviewed: Yes General Appearance: alert, mild distress, thin Eyes: pink conjunctivae Head, Ears, Nose, Mouth & Throat: normocephalic/atraumatic, moist mucous membranes, normal ENT inspection Neck: non-tender, full range of motion, supple, normal inspection. negative: C- spine tenderness, decresed ROM, ecchymosis Respiratory: decreased breath sounds (left side), pain on inspiration, increased rate, tenderness (L chest wall pain) Cardiovascular: normal peripheral pulses, no edema, no gallop, no JVD, no murmur , tachycardia Abdominal Exam: normal bowel sounds, non tender, soft, no organomegaly, no pulsatile mass. negative: abdominal bruit, distended, guarding, rigid, rebound , tenderness, mass, hepatomegaly, spleenomegaly Back Exam: normal inspection, no CVA tenderness, no vertebral tenderness. negative: CVA tenderness, decreased range of motion, ecchymosis, kyphosis, muscle spasm, scoliosis, swelling, vertebral tenderness Extremity: normal range of motion, no pedal edema, tenderness (to L hip) Integumentary: normal color, warm/dry Neurologic: senior gis analyst II-XII nml as tested, grossly normal, no motor/sensory deficits Psych/Mental Status: oriented x 3 - Glascow Coma Score Best Eye Response ([place]): (4) open spontaneously Best Verbal Response ([place]): (5) oriented Best Motor Response (Ani): (6) obeys commands Ani Total: 15 <Aj Brown - Last Filed: 03/02/17 07:16> Progress - PLAN OF CARE/RESULTS Result Diagrams: 02/23/17 14:52 02/23/17 14:52 <Igor Wallace - Last Filed: 02/23/17 20:22> - PLAN OF CARE/RESULTS Result Diagrams: 02/27/17 06:21 02/27/17 06:21 - REASSESSMENT Reassessment #1 Time Reassessed: 18:03 Status: improving (Pt is stable / family is at bedside) - XRAY 1 XRAY: Bilateral XRAY Study: Chest Impression: Abnormal (left pneumothorax and probable rib fractures- Dr. Flores (radiologist)), Discussed w/Radiology, See EMR Report 2 XRAY: Bilateral XRAY Study: Chest Impression: Abnormal (resoultion of left pneuothroax) XRAY Interpretation: repeat(chest tube) - Dr. flores (radiologist) - CONSULTS/PCP/HOSPITALIST Notification #1 *Consult/PCP/Hospitalist*: ( Radiologist) Time Discussed: 16:52 Consult Disposition: other (results of xray) - CHANGE OF SHIFT REPORT (ED Provider) Report Given and Care Transferred to:: Time of Transfer: 18:00 Items Pending: Labs, CT/MRI Results, Pain Control, Physician Consult/Arrival <Aj Brown - Last Filed: 03/02/17 07:16> - PLAN OF CARE/RESULTS Progress/Plan/Lab Results: Orders Category Date Time Status Admit - [facility] Routine AdmDCTranf 02/23/17 21:51 Ordered Activity - Bed Rest with BRP ORDERED Care 02/23/17 21:51 Active Apply Mechanical Device [QM] ORDERED Care 02/23/17 21:51 Active Drain Care PRN Care 02/23/17 21:51 Completed Vital Signs Order Q 4-HR ASSESS Care 02/23/17 21:51 Completed Z-Document. for Tele Applied ORDERED Care 02/23/17 21:51 Completed Regular Diet Diet 02/23/17 21:52 Completed CHEST-PORTABLE [RAD] Routine Exams 02/24/17 06:00 Completed CHEST-PORTABLE [RAD] Stat Exams 02/23/17 16:41 Completed CHEST-PORTABLE [RAD] Stat Exams 02/23/17 17:[address] THORAX/ABDOMEN/PELVIS [CT] Stat Exams 02/23/17 16:45 Completed BMP [BASIC METABOLIC PANEL] [CHEM] Stat Lab 02/24/17 07:13 Completed CBC WITH DIFF [HEME] Stat Lab 02/23/17 14:52 Completed CBC WITH ELECTRONIC DIFF [HEME] Routine Lab 02/24/17 06:00 Completed COMPREHENSIVE METABOLIC PANEL [CHEM] Stat Lab 02/23/17 14:52 Completed 0.9% Sodium Chloride Inj [Ns] 1,000 ml Med 02/23/17 17:10 Discontinued IV 999 mls/hr Aspirin EC Med 02/25/17 09:00 Discontinued 81 mg PO EVERY OTHER DAY Enoxaparin [Lovenox] Med 02/23/17 21:51 Discontinued 40 mg SUBQ NOW ONE Gabapentin [Neurontin] Med 02/24/17 09:00 Discontinued 300 mg PO BID Hydrocodone/APAP 10 mg/325 mg [[place]-10] Med 02/23/17 21:55 Discontinued 1 each PO Q4H PRN PRN Hydrocodone/APAP 7.5 mg/325 mg [[place]-7.5] Med 02/23/17 21:51 Discontinued 1 each PO Q4H PRN PRN Hydromorphone [Dilaudid] Med 02/23/17 21:51 Discontinued 1 mg IV NOW ONE Hydromorphone [Dilaudid] Med 02/23/17 21:51 Discontinued 1 mg IV Q3H PRN PRN Ketorolac [Toradol] Med 02/23/17 22:00 Discontinued 15 mg IV Q6H Magnesium Oxide [Mag-Ox] Med 02/24/17 09:00 Discontinued 400 mg PO DAILY Midazolam [Versed] Med 02/23/17 17:01 Discontinued 4 mg IV NOW ONE Midazolam [Versed] Med 02/23/17 17:02 Discontinued 5 mg .ROUTE .STK-MED ONE Morphine Med 02/23/17 18:19 Discontinued 2 mg .ROUTE .STK-MED ONE Morphine Med 02/23/17 16:45 Discontinued 2 mg IV NOW ONE Morphine Med 02/23/17 18:18 Discontinued 4 mg IV NOW ONE Morphine Med 02/23/17 19:55 Discontinued 4 mg IV NOW ONE Omeprazole [Prilosec] Med 02/24/17 07:00 Discontinued 20 mg PO DAILY@0700 Oxygen Device Routine Oth 02/23/17 21:51 Completed Telemetry [OM.EQ] Routine Oth 02/23/17 21:51 Active EKG [EKG] Stat Ther 02/23/17 16:45 Draft 1655: PT AND FAMILY AWARE OF THE CHEST XRAY RESULTS 1700: PT AND FAMILY ARE AWARE AND CONSENT TO CHEST TUBE PROCEDURE. (Zahida Soto) 1655: PT AND FAMILY AWARE OF THE CHEST XRAY RESULTS 1700: PT AND FAMILY ARE AWARE AND CONSENT TO CHEST TUBE PROCEDURE. (Aj Brown) Procedures - CHEST TUBE Left Upper Lateral Chest Time-Out Verification Completed?: Yes Size of Turkish Tube (cm): 24 Anesthetic: 0.5% Volume of Anesthesia (ml's): 10 Rajput of Air Mcdonough: Yes Number of Attempts: 1 Connected to Wall Suction?: Yes Tube Sutured to Skin: Yes Placement Verified by XRAY?: Yes <Aj Brown - Last Filed: 03/02/17 07:16> Departure - Departure Date of Disposition Decision: 02/23/17 Time of Disposition Decision: 19:30 Certified Medical Emergency: Emergent <Igor Wallace - Last Filed: 02/23/17 20:22> - Departure Date of Disposition Decision: 02/23/17 Time of Disposition Decision: 19:31 Certified Medical Emergency: Emergent - Critical Care Note This patient required my direct & personal management of CC.: Yes Total Time (mins): 40 Critical Care Statement: This patient required my direct personal management to treat or rule out processes, the absence of which, could potentiallly result in sudden, clinically significant life or limb threatening deterioration. <Aj Brown - Last Filed: 03/02/17 07:16> - Departure DIAGNOSIS: Pneumothorax Disposition: ADMITTED INPATIENT 09 Condition: Good Attestation - Physician/ CLAUS Attestation Patient care was provided by Advanced Practice Provider:: No The physician spent face to face time with patient:: Yes (It was only MD, no CLAUS involvement) Advanced Practice Provider documentation review:: Supervising physician onsite and consulted in the evaluation and care of this patient. The physician did have a face to face encounter with the patient. <Aj Brown - Last Filed: 03/02/17 07:16> This chart was documented by the indicated scribe, (Zahida Soto Scribe) and accurately reflects the services I performed and decisions made by me, Aj Brown MD, as attested by the provider's signature.
== END 2017-02-27 17:25 | disposition home or self-care (01) ==
LOC: ED 16:40 → 4N 23:37
PROVIDERS: ADMIT Surgery; ATTEND Surgery

== ENCOUNTER 2018-09-27 03:12 | Inpatient (IN) ==
--- NOTE | 2018-09-27 04:32 | PROVIDER DOCUMENTATION ---
HPI-Respiratory General - General Chief Complaint: Cough Stated Complaint: COL LUNG/POS BROKEN RIB/SOB Time Seen by Provider: 09/27/18 03:41 Source: patient Allergies/Adverse Reactions: Patient Allergies Allergy/AdvReac Type Severity Reaction Status Date / Time Penicillins Allergy Severe edema Verified 09/27/18 04:40 cephalexin monohydrate * Allergy Intermediate ITCHING Verified 09/27/18 04:40 [From Keflex] Home Medications: Home Medication List Medication Instructions Recorded Confirmed Last Taken Type Aspirin [Aspirin EC] 81 mg PO EVERY OTHER DAY 05/14/13 02/23/17 02/23/17 07:00 History Gabapentin 300 mg PO BID 05/14/13 02/23/17 02/23/17 07:00 History Magnesium 250 mg PO DAILY 08/29/16 02/23/17 02/23/17 12:00 History Pantoprazole [Protonix] 40 mg PO DAILY@0700 08/29/16 02/23/17 02/23/17 07:00 History Albuterol [Albuterol Neb] 2.5 mg INH Q4H PRN PRN #30 neb 02/27/17 Unknown Rx Fluticasone/Salmet 250/50 INH 1 puff INH RTBID #60 inhaler 02/27/17 Unknown Rx [Advair 250/50 Diskus] Hydrocodone/Acetaminophen [Lorcet 1 each PO Q4H PRN #30 tablet 02/27/17 Unknown Rx Plus 7.5-325 mg Tablet] - History of Present Illness-Resp Nature of Presenting Problem: Pt states that he has had cough for past several days that was green and productive but recently has been hurting in rt lower lung when he coughs. Quality of Pain: reports: aching Severity in ED: reports: mild Onset/Duration: reports: 2 days ago Timing: reports: still present Context: reports: recent URI (Hx of COPD and wears home O2). denies: recent foreign travel Exposure: reports: unknown cause Cough Quality/Degree: reports: mild Episode Frequency: occasional episodes Current Respiratory Medication Therapy: Initiated see nurses note Modifying Factors: improves with: coughing Associated Symptoms: reports: chest pain/soreness, nasal congestion Similar Symptoms Previously?: Yes Recently seen or treated by another doctor?: No Review of Systems - Adult - REVIEW OF SYSTEMS - ADULT Constitutional: reports: no symptoms reported, see HPI Eyes: reports: no symptoms reported, see HPI Ears, Nose, Mouth & Throat: reports: no symptoms reported, see HPI Cardiovascular: reports: no symptoms reported, see HPI Respiratory: reports: see HPI, cough Genitourinary: reports: no symptoms reported, see HPI Musculoskeletal: reports: no symptoms reported, see HPI Integumentary: reports: no symptoms reported, see HPI Neurological: reports: no symptoms reported, see HPI Psychiatric: reports: no symptoms reported, see HPI Endocrine: reports: no symptoms reported, see HPI Hematologic/Lymphatic: reports: no symptoms reported, see HPI Allergic/Immunologic: reports: no symptoms reported, see HPI All Other Systems: Reviewed and Negative Past History - Adult - PAST MEDICAL HISTORY-ADULT Review of Records: reports: Nursing Assessment Review, Medications Reviewed, Social history reviewed & non-contributory. Respiratory: reports: COPD Endocrine/Immune: reports: cancer (prostate and esophgual ca) - PRIOR SURGERIES/PROCEDURES Surgical/Procedure History: reports: recent surgery (prostatectomy) - IMMUNIZATION STATUS Childhood Immunizations: See Nurse Assessment Flu Vaccine: See Nurse Assessment Physical Exam-General - PHYSICAL EXAM-ADULT Initial Vital Signs Reviewed: Yes - CONSTITUTIONAL General Appearance: appears well, alert, no apparent distress - EYES Eyes: PERRL/EOMI - HEAD, EARS, NOSE, MOUTH & THROAT HENMT: normocephalic/atraumatic, moist mucous membranes, other (clear PND noted.) - NECK Neck: non-tender, full range of motion, supple, normal inspection - RESPIRATORY Respiratory: chest non-tender, no pleuratic chest pain, no respiratory distress, no accessory muscle use, rhonchi (rt sided rhonchi) - CARDIOVASCULAR Cardiovascular: normal peripheral pulses, regular rate, rhythm, no edema, no gallop, no JVD, no murmur - GASTROINTESTINAL (ABDOMEN) Abdominal Exam: normal bowel sounds, non tender, soft, no organomegaly, no pulsatile mass Progress - PLAN OF CARE/RESULTS Progress/Plan/Lab Results: Vital Signs - 8 hr 09/27/18 03:14 Temperature 99.1 F Pulse Rate 84 Respiratory Rate 15 Blood Pressure 136/88 O2 Sat by Pulse Oximetry 100 Laboratory Results - last 24 hr 09/27/18 09/27/18 09/27/18 04:20 04:20 04:20 WBC 7.11 RBC 4.64 L Hgb 15.0 Hct 46.4 MCV 100.0 H MCH 32.3 H MCHC 32.3 L RDW Std Deviation 13.0 Plt Count 202 MPV 11.0 H Immature Gran % (Auto) 0.0 Neut % (Auto) 74.9 Lymph % (Auto) 8.2 L Glenn % (Auto) 14.5 H Eos % (Auto) 2.1 Baso % (Auto) 0.3 Immature Gran # (Auto) 0.00 Neut # (Auto) 5.33 Lymph # (Auto) 0.58 L Glenn # (Auto) 1.03 H Eos # (Auto) 0.15 Baso # (Auto) 0.02 Sodium 141 Potassium 4.9 Chloride 98 Carbon Dioxide 32 Anion Gap 11 BUN 19 Creatinine 0.8 Estimated GFR/1.73 m2 > 60 BUN/Creatinine Ratio 24 Glucose 89 Calculated Osmolality 283 Calcium 9.2 Total Bilirubin 0.37 AST 29 ALT 12 Alkaline Phosphatase 80 Troponin T Hhe-[id number] Pept Total Protein 7.4 Albumin 4.6 Globulin 2.8 Albumin/Globulin Ratio 1.6 Plasma Lactate 1.2 Urine Source Urine Color Urine Turbidity Urine pH Ur Specific [place] Urine Protein Ur Glucose (Stick) Ur Ketones (Stick) Urine Blood Urine Nitrite Urine Bilirubin Urobilinogen Dipstick Urine Leukocytes Urine WBC (Auto) Urine RBC (Auto) U Epithel Cells (Auto) Urine Bacteria (Auto) 09/27/18 09/27/18 09/27/18 04:20 04:20 06:45 WBC RBC Hgb Hct MCV MCH MCHC RDW Std Deviation Plt Count MPV Immature Gran % (Auto) Neut % (Auto) Lymph % (Auto) Glenn % (Auto) Eos % (Auto) Baso % (Auto) Immature Gran # (Auto) Neut # (Auto) Lymph # (Auto) Glenn # (Auto) Eos # (Auto) Baso # (Auto) Sodium Potassium Chloride Carbon Dioxide Anion Gap BUN Creatinine Estimated GFR/1.73 m2 BUN/Creatinine Ratio Glucose Calculated Osmolality Calcium Total Bilirubin AST ALT Alkaline Phosphatase Troponin T < 0.010 Que-[id number]-Ukfucqcktpk Pept 1158 H Total Protein Albumin Globulin Albumin/Globulin Ratio Plasma Lactate Urine Source CLEAN CATCH Urine Color YELLOW Urine Turbidity CLEAR Urine pH 6.5 Ur Specific [place] 1.018 Urine Protein NEGATIVE Ur Glucose (Stick) NEGATIVE Ur Ketones (Stick) NEGATIVE Urine Blood NEGATIVE Urine Nitrite NEGATIVE Urine Bilirubin NEGATIVE Urobilinogen Dipstick NORMAL Urine Leukocytes NEGATIVE Urine WBC (Auto) <10 Urine RBC (Auto) <10 U Epithel Cells (Auto) <10 Urine Bacteria (Auto) NEGATIVE Orders Category Date Time Status CHEST-2 VIEWS [RAD] Stat Exams 09/27/18 03:45 Completed BLOOD CULTURE [BLDCUL] Stat Lab 09/27/18 08:09 Uncollected CBC WITH ELECTRONIC DIFF [HEME] Stat Lab 09/27/18 04:20 Completed CMP [COMPREHENSIVE METABOLIC PANEL] [CHEM] Stat Lab 09/27/18 04:20 Completed LACTATE, PLASMA [CHEM] Stat Lab 09/27/18 04:20 Completed PRO B-NATRIURETIC PEPTIDE Stat Lab 09/27/18 04:20 Completed TROPONIN T Stat Lab 09/27/18 04:20 Completed URINALYSIS W/POSS RFLX CULT [URINALYSIS] Stat Lab 09/27/18 06:45 Completed Levofloxacin 750 mg/D5w [Levaquin 750 mg/D5w] Med 09/27/18 08:09 Active 750 mg in 150 ml IV NOW Methylprednisolone Sod Succ [Solu-Medrol] Med 09/27/18 08:10 Discontinued 125 mg IV NOW ONE Result Diagrams: 09/27/18 04:20 09/27/18 04:20 - REASSESSMENT Reassessment #1 Time Reassessed: 07:47 Status: unchanged (Assumed care of this patient at shift change. patient notes that he continues to cough and have chills. Patient notes that he has been on outpt therapy for exacerbation. will recommend for admission to the hospital. Awaiting callback from Hospitalist.) - CONSULTS/PCP/HOSPITALIST Notification #1 *Consult/PCP/Hospitalist*: Dr. An Time Discussed: 08:31 Consult Disposition: Admit Departure - Departure Date of Disposition Decision: 09/27/18 Time of Disposition Decision: 08:31 DIAGNOSIS: COPD with acute exacerbation Disposition: ADMITTED INPATIENT 09 Certified Medical Emergency: Emergent Condition: Stable Referrals and Follow-Ups: Chuck An MD [Primary Care Provider] - - Critical Care Note This patient required my direct & personal management of CC.: No Attestation - Physician/ CLAUS Attestation Patient care was provided by Advanced Practice Provider:: No The physician spent face to face time with patient:: Yes Advanced Practice Provider documentation review:: Supervising physician onsite and consulted in the evaluation and care of this patient. The physician did have a face to face encounter with the patient.
[2018-09-27 05:31] LABS: BASO# 0.02 X1000 (0.0-0.2); BASO% 0.3 % (0.0-0.8); EOS# 0.15 X1000 (0.0-0.7); EOS% 2.1 % (0.0-10.0); HEMATOCRIT 46.4 % (42.0-52.0); LYMPH# 0.58 X1000 (1.2-3.4); LYMPH% 8.2 % (20.5-51.1); MCH 32.3 PG (27-31); MCHC 32.3 g/dL (33-37); MONO# 1.03 X1000 (0.11-0.59); MONO% 14.5 % (1.7-9.3); NEUT# 5.33 X1000 (1.4-6.5); NEUT% 74.9 % (42.2-75.2); PLT 202 X1000 (130-400); RBC 4.64 XMIL (4.7-6.1); WBC 7.11 X1000 (4.8-10.8)
[2018-09-27 05:46] LABS: AGAP 11; ALB/GLOB RATIO 1.6; ALBUMIN 4.6 g/dL (3.5-5.0); ALKALINE PHOSPHATASE 80 U/L (32-122); BUN 19 mg/dL (8-22); CALCIUM 9.2 mg/dL (8.8-10.2); CHLORIDE 98 mmol/L (98-107); COSMO 283; CREATININE 0.8 mg/dL (0.7-1.2); ESTIMATED GFR > 60; GLUCOSE 89 mg/dL (70-104); GOT 29 U/L (10-34); GPT 12 U/L (10-44); POTASSIUM 4.9 mmol/L (3.5-5.1); SODIUM 141 mmol/L (136-145); TCO2 32 mmol/L (25-35); TOTAL BILIRUBIN 0.37 mg/dL (0.20-1.00); TOTAL PROTEIN 7.4 g/dL (6.3-8.3)
[2018-09-27 06:51] LABS: URINE SOURCE CLEAN CATCH
[2018-09-27 07:00] LABS: BILIRUBIN URINE NEGATIVE (NEGATIVE); BLOOD URINE NEGATIVE (NEGATIVE); COLOR YELLOW; GLUCOSE URINE NEGATIVE (NEGATIVE); KETONE URINE NEGATIVE (NEGATIVE); LEUKOCYTES URINE NEGATIVE (NEGATIVE); NITRITE URINE NEGATIVE (NEGATIVE); PH URINE 6.5; PROTEIN URINE NEGATIVE (NEGATIVE); SP GRAVITY URINE 1.018; TURBIDITY URINE CLEAR (CLEAR); UROBILINOGEN URINE NORMAL (NORMAL)
[2018-09-27 07:01] LABS: UR EPITHELIAL CELLS <10 /HPF (<10); URINE BACTERIA NEGATIVE /HPF; URINE RBC <10 /HPF (<10); URINE WBC <10 /HPF (<10)
--- NOTE | 2018-09-27 07:20 | Diag Imaging Result Doc PS360 ---
CHEST-2 VIEWS - 09/27/2018 INDICATION: cough COMPARISON: 07/04/2017 FINDINGS: Stable severe COPD. No infiltrates or edema. No pneumothorax or pleural effusion. Heart size is normal. IMPRESSION: Severe COPD. Electronically signed by Kennedy Batista 09/27/2018 7:17 AM
[2018-09-27] MEDS ORDERED: LEVAQUIN 750 MG/D5W 750 MG/150 ML IVPB IV ONE (08:09)
[2018-09-27] MEDS ORDERED: SOLU-MEDROL IV ONE (08:10)
--- NOTE | 2018-09-27 08:56 | HISTORY AND PHYSICAL ---
HISTORY OF PRESENT ILLNESS: This is a 73-year-old who states for the last week he has had more trouble with breathing. He saw TOBI Peng on Sunday, and was given some prednisone, but has had increased coughing. His ribs are hurting from coughing and increased wheezing. When he gets up to get around, he gets very short of breath. He denies fever. Denies any true productive sputum, but he does have a lot of phlegm and drainage of the back of his throat. PAST MEDICAL HISTORY: 1. He has had esophageal cancer status post esophageal resection done in [place]. He had an esophagectomy with gastric pull-through in 2009. 2. Bladder cancer status post robotic prostatectomy. I think this is prostate surgery in [address] Gruber. 3. Gastroesophageal reflux. 4. 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 5. COPD. He quit smoking about a year ago. ALLERGIES: Penicillin and Keflex. HOME MEDICATIONS: He was on aspirin, Neurontin, magnesium, Protonix, and [place]. FAMILY HISTORY: Mother had diabetes mellitus. SOCIAL HISTORY: Retired. Former smoker, I guess he quit a couple of years ago. No alcohol or illicit drug use. PAST SURGICAL HISTORY: 1. [facility] esophagectomy with stomach pull-through. 2. Internal hernia repair. 3. Robotic prostatectomy. REVIEW OF SYSTEMS: General: No weight gain or loss. No fever or chills. HEENT: Unremarkable. Respiratory: As above. He has had increased work of breathing, increased cough, increased congestion and rib pleuritic pain from coughing. Cardiovascular: No chest pain or tachy palpitation. Gastrointestinal and Genitourinary: No gross hematuria or dysuria. Musculoskeletal/Neurologic: No significant complaints. Endocrinologic/Hematologic: No significant history. PHYSICAL EXAMINATION: VITAL SIGNS: Temperature 99.1 degrees, pulse 84, respirations 15, and blood pressure 136/88. Pupils are equal and round. Weight 145 pounds. LUNGS: Clear in all lung espinal. Scattered rhonchi. Prolonged expiratory phase and slight tachypnea. No pedal edema. CARDIOVASCULAR: Regular rhythm and rate without murmur or S3. ABDOMEN: Soft. SKIN: Warm and dry. NECK: Supple. No distended neck veins. LABORATORY: White count 7110, hematocrit 46, and platelet count 202,000. Sodium 141, potassium 4.9, chloride 98, BUN 19, creatinine 0.8. Calcium 9.2, AST 29, ALT 12. ProBNP is 1158. Urinalysis unremarkable. Chest x-ray with severe COPD. No infiltrates or edema. No pneumothorax or pleural effusion. Heart size is normal. ASSESSMENT AND PLAN: 1. COPD exacerbation with acute bronchitis, postnasal drip syndrome. I am going to put him on some Solu-Medrol. We will give him DuoNeb's and make sure he is on a steroid inhaler and supplementary O2. We will see if maybe he needs O2 at home, but we will keep him on supplemental O2 for now. I will put him on his Levaquin 750 mg IV daily. 2. History of esophageal cancer aware. Nutrition looks good. 3. History of prostate cancer I believe status post prostatectomy. cc: Chuck An MD
[2018-09-27] MEDS ORDERED: TYLENOL PO PRN (10:32)
[2018-09-27] MEDS: NEURONTIN PO SCH ×3 (10:32→20:32)
[2018-09-27] MEDS: MAG-OX PO SCH (10:32)
[2018-09-27] MEDS: NS 1,000 ML IV SCH (13:31)
[2018-09-27] MEDS: ASPIRIN EC PO SCH (13:31)
[2018-09-27] MEDS: ALBUTEROL NEB INH PRN ×2 (16:29→19:35)
[2018-09-27] MEDS: SOLU-MEDROL IV SCH (17:08)
[2018-09-27] MEDS: ADVAIR 250/50 DISKUS INH SCH (19:35)
[2018-09-28] MEDS: SOLU-MEDROL IV SCH ×3 (00:06→20:24)
[2018-09-28] MEDS: NS 1,000 ML IV SCH ×2 (01:06→14:57)
[2018-09-28] MEDS: NORCO-7.5 PO PRN ×2 (04:30→15:00)
[2018-09-28 05:25] LABS: BASO# 0.01 X1000 (0.0-0.2); BASO% 0.1 % (0.0-0.8); HEMATOCRIT 42.7 % (42.0-52.0); IMM GRAN# 0.03 X1000 (0.0-0.04); IMM GRAN% 0.2 % (0.0-0.5); LYMPH# 0.48 X1000 (1.2-3.4); LYMPH% 2.7 % (20.5-51.1); MCH 32.6 PG (27-31); MCHC 32.8 g/dL (33-37); MCV 99.5 FL (81-99); MONO# 0.58 X1000 (0.11-0.59); MONO% 3.2 % (1.7-9.3); MPV 11.1 FL (7.4-10.4); NEUT# 16.89 X1000 (1.4-6.5); NEUT% 93.8 % (42.2-75.2); PLT 201 X1000 (130-400); RBC 4.29 XMIL (4.7-6.1); RDW 12.7 % (11.5-14.5); WBC 17.99 X1000 (4.8-10.8)
[2018-09-28 05:40] LABS: AGAP 11; ALB/GLOB RATIO 1.3; ALKALINE PHOSPHATASE 67 U/L (32-122); BUN 19 mg/dL (8-22); CALCIUM 9.3 mg/dL (8.8-10.2); CHLORIDE 98 mmol/L (98-107); COSMO 281; CREATININE 0.7 mg/dL (0.7-1.2); ESTIMATED GFR > 60; GLUCOSE 145 mg/dL (70-104); GOT 22 U/L (10-34); GPT 9 U/L (10-44); POTASSIUM 4.8 mmol/L (3.5-5.1); SODIUM 138 mmol/L (136-145); TCO2 29 mmol/L (25-35); TOTAL BILIRUBIN 0.35 mg/dL (0.20-1.00)
[2018-09-28] MEDS: PROTONIX PO SCH (06:03)
[2018-09-28 06:29] LABS: BANDS 2 % (0-1); LYMPHS 6 % (21-51); MONO 2 % (1-9); SEGS 90 % (42-75)
--- NOTE | 2018-09-28 07:33 | Diag Imaging Result Doc PS360 ---
CHEST-PORTABLE - 09/28/2018 INDICATION: short of breath COMPARISON: 09/27/2018 FINDINGS: Stable severe COPD. No infiltrates or edema. Heart size remains normal. IMPRESSION: COPD. Electronically signed by Kennedy Batista 09/28/2018 7:31 AM
[2018-09-28] MEDS: ADVAIR 250/50 DISKUS INH SCH ×2 (07:47→19:37)
[2018-09-28] MEDS: ALBUTEROL NEB INH PRN ×3 (07:47→19:37)
[2018-09-28] MEDS: NEURONTIN PO SCH ×2 (08:28→20:23)
[2018-09-28] MEDS: MAG-OX PO SCH (08:28)
[2018-09-28] MEDS: LEVAQUIN 750 MG/D5W 750 MG/150 ML IVPB IV SCH (08:28)
--- NOTE | 2018-09-28 09:32 | PROGRESS NOTE ---
DATE: 09/28/2018 SUBJECTIVE: Mr. Blackwell is feeling better. He is sitting up in a chair. His breathing is much more comfortable. OBJECTIVE: Vital signs: Temperature 97.7 degrees, pulse 77, respirations 18, blood pressure 113/72. HEENT: Pupils are equal and round. Lungs: Clear in all lung espinal. Cardiovascular: Rate rhythm and rate without murmur or S3. Abdomen: Soft. Skin: Warm and dry. LABORATORY DATA: White count was elevated this morning at 17,990, hematocrit 42, platelet count 201,000. Electrolytes: Sodium 138, potassium 4.8, chloride 98, BUN 19, creatinine 0.7, blood sugars 89 and 145 consecutively. We will check his T4 and TSH. IMAGING: Chest x-ray from this morning. No infiltrates or edema. Heart size remains normal. ASSESSMENT: 1. Chronic obstructive pulmonary disease exacerbation, acute bronchitis, postnasal drip syndrome. Has been coughing pretty hard. His ribs on the right side are a little bit tender. He has broken his ribs I think on that side and I think he also had surgery where they may have broken those ribs when he had his esophagus resected, but he has been coughing pretty hard and I think he just bruised and strained the muscles around that rib. 2. Esophageal cancer status post esophagectomy with gastric pull-through. He has done well. He had that in [place]. 3. History of prostate cancer status post prostatectomy. PLAN: So it appears he has acute bronchitis and this is improving. Continue his fluticasone salmeterol 1 puff b.i.d. He is on Neurontin 300 mg b.i.d. I am giving him Levaquin 750 mg IV q.24 hours and he is on methylprednisone 60 mg q.8. We will cut the methylprednisone down to 40 mg q.12. He is on Protonix 40 mg p.o. daily. Seems to have improved. cc: Chuck An MD
[2018-09-29] MEDS: NORCO-7.5 PO PRN ×2 (02:37→19:29)
[2018-09-29] MEDS: NS 1,000 ML IV SCH ×2 (05:10→07:05)
[2018-09-29] MEDS: PROTONIX PO SCH (06:02)
--- NOTE | 2018-09-29 07:36 | PROGRESS NOTE ---
DATE: 09/29/2018 SUBJECTIVE: Mr. Blackwell is comfortable, breathing well. His cough is a little less and his right rib is still pretty sore. OBJECTIVE: Vital Signs: Temperature 98.0, pulse 90, respirations 18, blood pressure 117/97. HEENT: Pupils are equal round. Lungs: Clear in all lung espinal. Cardiovascular: Regular rhythm and rate without murmur or S3. Abdomen: Soft. Skin: Warm and dry. Urine output was 1200 mL. ASSESSMENT AND PLAN: 1. Chronic obstructive pulmonary disease exacerbation with acute bronchitis and postnasal drip syndrome. Breathing is much better. Bronchial irritation has diminished. 2. Status post esophageal resection with stomach pull-through for esophageal cancer, doing well from that standpoint. He had that done in [place]. 3. History of prostate cancer status post prostatectomy. REVIEW OF LABORATORY STUDIES: White count was elevated at 17,990 hematocrit 42, platelet count 201,000. Chemistries: Sodium 138, potassium 4.8, chloride 98, BUN 19, creatinine 0.7. Chest x- ray: Stable, severe COPD. No infiltrates. cc: Chuck An MD
[2018-09-29] MEDS: ALBUTEROL NEB INH PRN ×2 (08:00→19:05)
[2018-09-29] MEDS: ADVAIR 250/50 DISKUS INH SCH ×2 (08:00→22:04)
[2018-09-29] MEDS: NEURONTIN PO SCH ×2 (08:24→20:59)
[2018-09-29] MEDS: SOLU-MEDROL IV SCH ×2 (08:24→20:59)
[2018-09-29] MEDS: MAG-OX PO SCH (08:24)
[2018-09-29] MEDS: ASPIRIN EC PO SCH (08:24)
[2018-09-29] MEDS: LEVAQUIN 750 MG/D5W 750 MG/150 ML IVPB IV SCH (08:24)
--- NOTE | 2018-09-29 09:49 | Diag Imaging Result Doc PS360 ---
CHEST-2 VIEWS - 09/29/2018 INDICATION: copd exacerbation COMPARISON: 09/28/2018 FINDINGS: Stable advanced COPD. No infiltrates or edema. Heart size is normal. IMPRESSION: COPD. Electronically signed by Kennedy Batista 09/29/2018 9:47 AM
--- NOTE | 2018-09-29 09:50 | Diag Imaging Result Doc PS360 ---
RIBS ONLY RIGHT - 09/29/2018 INDICATION: sore ribs TECHNIQUE: Four views COMPARISON: Many prior exams FINDINGS: Stable old rib deformity at the lateral right fifth rib. No acute rib fractures visible. IMPRESSION: Old right-sided rib fracture. Electronically signed by Kennedy Batista 09/29/2018 9:48 AM
[2018-09-30] MEDS: NS 1,000 ML IV SCH (01:12)
[2018-09-30] MEDS: PROTONIX PO SCH (06:10)
[2018-09-30 07:19] VITALS: BP 128/85
[2018-09-30] MEDS: ADVAIR 250/50 DISKUS INH SCH (07:52)
[2018-09-30] MEDS: SOLU-MEDROL IV SCH (08:39)
[2018-09-30] MEDS: MAG-OX PO SCH (08:39)
[2018-09-30] MEDS: NEURONTIN PO SCH (08:39)
[2018-09-30] MEDS: LEVAQUIN 750 MG/D5W 750 MG/150 ML IVPB IV SCH (08:39)
[2018-09-30] MEDS: NORCO-7.5 PO PRN (08:42)
--- NOTE | 2018-09-30 10:56 | DISCHARGE SUMMARY ---
ADMISSION DATE: 09/27/2018 DISCHARGE DATE: 09/30/2018 PRIMARY CARE PHYSICIAN: Nurse practitioner, Nicci Duong. HISTORY OF PRESENT ILLNESS: A 73-year-old who came in on 09/27/2018. For a week previous to that, he was having trouble with breathing and coughing. He saw TOBI Pneg, on Sunday of that week. Given some prednisone but continued having increased coughing, hurting, and wheezing, and concerned that he was very short of breath. PAST MEDICAL HISTORY: 1. He has had esophageal cancer, status post esophageal resection done in [place]. He had esophagectomy and a gastric pull-through in 2009. 2. Bladder cancer, status post robotic prostatectomy. I think it was a prostate surgery for prostate cancer done in [address] Gruber. 3. Gastroesophageal reflux. 4. Chronic pain in the chest wall after esophagectomy. 5. COPD. He quit smoking about a year ago. ALLERGIES: Penicillin and Keflex. HOSPITAL COURSE: He was admitted. It looked like he had COPD exacerbation, acute bronchitis, postnasal drip syndrome. He continued to improve. We put him on Solu-Medrol, DuoNebs, steroids, bronchodilators. He has supplementary O2 at home already. Continued diet. He showed steady improvement. He did have some pain in his right anterior ribcage but he has had fractures in those ribs and I think they also broke some of those ribs when they were doing his esophageal cancer. His chest x-ray showed no new acute fractures in the ribs and no infiltrate. On original chest x-ray on 09/27/2018, no infiltrates. Followup chest x-ray on 09/29/2018 also without any infiltrates but evidence of COPD. He is doing much better and felt he could go home. He wanted to go home on 09/30/2018. We will discharge him home. DISCHARGE MEDICATIONS: We will continue his O2 at home. He has that on nasal cannula. Neurontin 300 mg b.i.d. He has [place] 7.5. I will give him q.4 hours p.r.n. I gave him about 20 of those. Levaquin 750 mg IV q.24 hours. I think we can stop that. He will continue his Advair 250/50 one puff b.i.d., aspirin 81 mg a day. He has albuterol nebulizers at home that he can use. Magnesium 250 mg a day and he already has the hydrocodone 7.5/325 to take q.6 hours p.r.n., Protonix 40 mg daily. FOLLOWUP: Follow up with Nicci Duong. cc: Chuck An MD
== END 2018-09-30 11:20 | disposition home or self-care (01) | DRG 202 ==
LOC: ED 03:12 → EDIPHOLD 09:28 → 3S 11:58 → 4N 09-29 13:43
PROVIDERS: ADMIT Emergency Medicine; ATTEND Emergency Medicine
CPT/HCPCS: 71010; 71020; 71045; 71046; 71100; 80053; 81001; 83605; 83880; 84153; 84484; 85025; 87040; 87070; 87205; 94640; 94761; 94799; 99285; A9270; J1956; J2920; J2930; J7030